=== PATIENT | female | born 1970 | race Caucasian/White ===

== ENCOUNTER → 2019-10-10 14:47 | Outpatient (CLI) | payer OTHER, SELFPAY ==
--- NOTE | ~2019-10-10 | MM_ITS ---
EXAMINATION: MM screening debbie BI w natalie HISTORY: Screening mammogram TECHNIQUE: Craniocaudal and mediolateral oblique 3-D tomosynthesis images were obtained and synthetic 2-D images were generated. CAD analysis was submitted and interpreted. COMPARISON: No prior mammogram is available for comparison at this institution. BREAST PARENCHYMAL COMPOSITION: There are scattered areas of fibroglandular density. FINDINGS: There is no evidence of suspicious mass, calcification, or architectural distortion to sugg est malignancy in either breast. IMPRESSION: 1. No mammographic evidence of malignancy. 2. Recommend routine screening mammography in one year. BI-RADS Category 1: Negative Reviewed, dictated and finalized at location A.
== END ==
PROVIDERS: PCP Family Medicine; Visit Provider Obstetrics & Gynecology
DX: Z12.31 Encounter for screening mammogram for malignant neoplasm of breast (principal)
CPT/HCPCS: 77063; 77067

== ENCOUNTER → 2020-03-12 11:08 | Outpatient (CLI) | payer OTHER, SELFPAY ==
--- NOTE | ~2020-03-12 | XR_ITS ---
XR chest 2V DATE: 03/12/2020 12:10 INDICATION: Shortness of breath TECHNIQUE: PA and lateral views COMPARISON: None FINDINGS: Normal heart size. No hilar or mediastinal enlargement. There are calcified right hilar and subcarinal nodes and calcified right upper lobe pulmonary granulo mas, consistent with old granulomatous disease. Normal heart size. No pulmonary infiltrate or consolidation, pleural effusion or pulmonary vascular c ongestion or pneumothorax. Prominent S-shaped scoliosis of the thoracolumbar spine. IMPRESSION: Old pulmonary granulomatous disease Prominent thoracolumbar scoliosis Reviewed, dictated and finalized at location A. ECT ENGINEERING DIRECTOR
== END ==
PROVIDERS: PCP Family Medicine; Visit Provider Family Medicine
DX: R06.02 Shortness of breath (principal); M41.85 Other forms of scoliosis, thoracolumbar region; Z87.09 Personal history of other diseases of the respiratory system
CPT/HCPCS: 71046

== ENCOUNTER → 2021-04-16 14:15 | Outpatient (CLI) | payer OTHER, SELFPAY ==
--- NOTE | ~2021-04-16 | MM_ITS ---
EXAMINATION: MM screening debbie BI w natalie HISTORY: Screening TECHNIQUE: Craniocaudal and mediolateral oblique 3-D tomosynthesis images were obtained and synthetic 2-D images were generated. CAD analysis was submitted and interpreted. COMPARISON: 10/10/2019 BREAST PARENCHYMAL COMPOSITION: There are scattered areas of fibroglandular density. FINDINGS: There is no evidence of suspicious mass, calcification, or architectural distortion to sugg est malignancy in either breast. There has been no suspicious interval change. IMPRESSION: 1. No mammographic evidence of malignancy. 2. Recommend routine screening mammography in one year. BI-RADS Category 1: Negative Reviewed, dictated and finalized at location A. ACTIVE SURGEON
== END ==
PROVIDERS: PCP Family Medicine; Visit Provider Obstetrics & Gynecology
DX: Z12.31 Encounter for screening mammogram for malignant neoplasm of breast (principal)
CPT/HCPCS: 77063; 77067

== ENCOUNTER 2023-06-23 13:21 | Outpatient (CLI) | payer OTHER, SELFPAY ==
--- NOTE | ~2023-06-23 | MM_ITS ---
EXAMINATION: MM screening debbie BI w natalie HISTORY: Screening TECHNIQUE: Craniocaudal and mediolateral oblique 3-D tomosynthesis images were obtained and synthetic 2-D images were generated. CAD analysis was submitted and interpreted. COMPARISON: Comparison to multiple prior studies sequentially, with oldest reviewed study dated 12/2019. BREAST PARENCHYMAL COMPOSITION: Not dense: There are scattered areas of fibroglandular density. FINDINGS: There is no evidence of suspicious mass, calcification, or architectural distortion to sugg est malignancy in either breast. There has been no suspicious interval change. IMPRESSION: 1. No mammographic evidence of malignancy. 2. Recommend routine screening mammography in one year. BI-RADS Category 1: Negative Reviewed, dictated and finalized at location A.
== END 2023-06-23 13:22 ==
LOC: MICIMG 13:23
PROVIDERS: PCP Obstetrics & Gynecology; Visit Provider Obstetrics & Gynecology
DX: Z12.31 Encounter for screening mammogram for malignant neoplasm of breast (principal)
CPT/HCPCS: 77063; 77067

== ENCOUNTER 2023-06-29 13:41 | Outpatient (CLI) | payer OTHER, SELFPAY ==
--- NOTE | ~2023-06-29 | MR_ITS ---
EXAMINATION: MR cervical spine wo con DATE: 06/29/2023 14:19 INDICATION: Cervical radiculopathy. TECHNIQUE: Magnetic resonance imaging (MRI) of the cervical spine was performed without intravenous c ontrast. COMPARISON: None FINDINGS: There is 10 degrees levoscoliosis of cervicothoracic spine. There is 2 mm retrolisthesis of C3 and C4. There is mild kyphosis of lower cervical spine. Vertebral body heights are normal. There is severely decreased disc height at C3-C4, C5-C6, and C6-C7. The spinal cord signal intensity is nor mal. The following disc levels are specifically discussed: C2-C3: There is a right central protrusion. There is mild bilateral uncovertebral joint osteoarthriti s. There is moderate right and severe left facet joint osteoarthritis. There is no neural foraminal s tenosis. There is no central canal stenosis. C3-C4: The disc is bulging. There is severe right and moderate left uncovertebral joint osteoarthriti s. There is severe bilateral facet joint osteoarthritis. There is moderate right and mild left neural foraminal stenosis. There is mild central canal stenosis. C4-C5: The disc does not extend beyond the endplate margin. There is mild bilateral uncovertebral jane nt osteoarthritis. There is severe right and mild left facet joint osteoarthritis. There is mild righ t neural foraminal stenosis. There is no central canal stenosis. C5-C6: The disc is bulging. There is severe right and moderate left uncovertebral joint osteoarthriti s. There is mild bilateral facet joint osteoarthritis. There is mild right neural foraminal stenosis. There is mild central canal stenosis. C6-C7: The disc is bulging. There is severe bilateral uncovertebral joint osteoarthritis. There is mi ld right facet joint osteoarthritis. There is mild bilateral neural foraminal stenosis. There is mild central canal stenosis. C7-T1: There is a right central extrusion. There is no uncovertebral joint osteoarthritis. There is m oderate right and mild left facet joint osteoarthritis. There is no neural foraminal stenosis. There is mild central canal stenosis. IMPRESSION: 1. Severe cervical spondylosis. 2. Cervicothoracic levoscoliosis. Reviewed, dictated and finalized at location A.
== END 2023-06-29 13:42 ==
LOC: MICIMG 13:42
PROVIDERS: PCP Nurse Practitioner Family; Visit Provider Nurse Practitioner Family
DX: M54.12 Radiculopathy, cervical region (principal); M43.02 Spondylolysis, cervical region; M41.83 Other forms of scoliosis, cervicothoracic region
CPT/HCPCS: 72141